=== PATIENT | female | born 1960 | race Caucasian/White ===

== ENCOUNTER → 2016-12-16 | Outpatient (CLI) | payer BC ==
[~2016-12-16] MED LIST: ALEVE 220MG220 MG PO; CIPRO 500MG TA500 MG PO; CLINDAMYCIN300 MG PO; EFFEXOR XR150 MG PO; FLEXERIL 1010 MG/TAB PO; FLONASEALLERGY NS; NORCO 325 MG-51 TAB PO; VENLAFAXINE225 MG PO; VICODIN 5/5001 UDTAB PO; XANAX .25M0.25 MG/TA PO; ZESTRIL 10MG10 MG PO
== END ==
LOC: MC.RAD 08:00
DX: Z12.31 Encounter for screening mammogram for malignant neoplasm of breast (principal)

== ENCOUNTER 2017-02-21 09:25 | Day surgery (SDC) | payer BC ==
[~2017-02-21] VITALS: Ht 162.6 cm; Wt 65.9 kg
[~2017-02-21 09:25] MED LIST changes: -ALEVE 220MG220 MG PO; -FLONASEALLERGY NS
[2017-02-21] MEDS ORDERED: ALEVE 220MG220 MG PO (09:54)
[2017-02-21] MEDS ORDERED: FLONASEALLERGY NS (09:54)
[2017-02-21 11:15] VITALS: BP 105/57; PULSE 66
[2017-02-21 11:30] VITALS: BP 101/64; PULSE 64
[2017-02-21 11:45] VITALS: BP 111/64; PULSE 64
[2017-02-21 17:22] VITALS: BP 111/72; PULSE 73
== END 2017-02-21 12:00 | disposition home or self-care (01) ==
LOC: SDCO 09:25
DX: D12.5 Benign neoplasm of sigmoid colon (principal); K92.1 Melena; K64.1 Second degree hemorrhoids; I10 Essential (primary) hypertension; K57.30 Diverticulosis of large intestine without perforation or abscess without bleeding; Z90.710 Acquired absence of both cervix and uterus
CPT/HCPCS: J2250; J3010; J7030

== ENCOUNTER → 2022-08-27 | Outpatient (CLI) | payer BC ==
[~2022-08-27] MED LIST changes: +ALEVE 220MG220 MG PO; +FLONASEALLERGY NS
== END ==
LOC: COL.RAD 13:00
DX: R91.1 Solitary pulmonary nodule (principal)
CPT/HCPCS: Q9967

== ENCOUNTER 2022-10-11 07:55 | Day surgery (SDC) | payer BC ==
[~2022-10-11] VITALS: Ht 162.6 cm; Wt 57.7 kg
[~2022-10-11 07:55] MED LIST changes: +EFFEXOR XR37.5 MG/CA PO; -VENLAFAXINE225 MG PO
[2022-10-11 08:26] VITALS: BP 125/61; PULSE 53; TEMP 98.5
[2022-10-11] MEDS ORDERED: WELLBUTRIN SR150 M1 PO (08:30)
[2022-10-11] MEDS ORDERED: COZAAR100 MG PO (08:31)
[2022-10-11] MEDS ORDERED: PRAVACHOL 40MG40 MG PO (08:31)
[2022-10-11] MEDS ORDERED: VITAMIN D31000 I1 PO (08:32)
[2022-10-11] MEDS ORDERED: THE MEDICINE S200 M2 PO (08:32)
[2022-10-11] MEDS ORDERED: NICODERM C21 MG/PATC TD (08:33)
[2022-10-11] MEDS ORDERED: NICORETTE4 M1 PO (08:34)
[2022-10-11] MEDS ORDERED: VOLTAREN GEL 1%1 TU TP (08:35)
[2022-10-11 09:25] VITALS: BP 99/52; PULSE 58; TEMP 98.5
[2022-10-11 09:40] VITALS: BP 117/54; PULSE 56
--- NOTE | 2022-10-11 09:50 | NUR ---
0925 RETURNS TO ROOM 8 PER CART. AWAKE, ALERT. RESP UNLABORED. AMBULATES FROM CART TO RECLINER WITH STANDBY ASSIST. DENIES NAUSEA OR ABD PAIN. VITAL SIGNS OBTAINED. CALL LIGHT AT SIDE. SISTER HERE 0935 DISCHARGE INSTRUCTIONS REVIEWED. PATIENT VERBALIZES UNDERSTANDING COPY PROVIDED IN DISCHARGE FOLDER. TOLERATES PO SPRITE WITHOUT NAUSEA. 0937 DR. MAC HERE TO VISIT WITH PATIENT. 0915 DRESSES SELF
== END 2022-10-11 09:50 | disposition home or self-care (01) ==
LOC: SDCO 07:55
DX: Z12.11 Encounter for screening for malignant neoplasm of colon (principal); K57.30 Diverticulosis of large intestine without perforation or abscess without bleeding; K64.1 Second degree hemorrhoids; Z86.010 Personal history of colon polyps; Z87.891 Personal history of nicotine dependence
CPT/HCPCS: J2704; J7120